=== PATIENT | female | born 2000 | race Caucasian/White ===

== ENCOUNTER 2025-02-16 12:09 | Emergency (ER) | payer OTHER ==
[2025-02-16 12:34] VITALS: BP 108/88; PULSE 95; RESP 20; TEMP 97.9; BMI 29.7
[2025-02-16 13:26] LABS: ABSOLUTE IMMATURE GRANULOCYTES 0.03 x10^3/uL (0.0-0.031); BASOPHILS # 0.08 x10^3/uL (0.01-0.08); EOSINOPHIL % 2.0 % (0.7-5.8); EOSINOPHILS # 0.13 x10^3/uL (0.04-0.36); HCG,QUALITATIVE URINE Positive; MCHC 31.3 g/dl (32.2-35.5); MEAN CELL VOLUME 82.3 fl (79.4-94.8); MEAN PLT VOLUME 10.2 fl (9.4-12.3); MONOCYTE # 0.42 x10^3/uL (0.24-0.86); MONOCYTE % 6.6 % (4.7-12.5); RDW 13.0 % (12.1-16.5)
[2025-02-16 13:32] LABS: EPI CELLS >36 /uL (0-25.1); HYALINE CASTS 1 /uL (0-3.1); URINE APPEARANCE CLEAR; URINE BACTERIA 777 /uL (0-1359); URINE BILIRUBIN NEGATIVE (NEGATIVE); URINE COLOR YELLOW; URINE GLUCOSE (UA) NEGATIVE (NEGATIVE); URINE KETONE TRACE (NEGATIVE); URINE LEUK ESTERASE TRACE (NEGATIVE); URINE NITRITE NEGATIVE (NEGATIVE); URINE PROTEIN TRACE (NEGATIVE); URINE RBC 33 /uL (0-23.9); URINE UROBILINOGEN 1.0 mg/dL (0.2-1.0); URINE WBC 10 /uL (0-25.8)
[2025-02-16 14:00] LABS: GLUCOSE,RANDOM 97.0 mg/dL (74-106); TOT PROT 8.0 g/dl (6.4-8.2)
[2025-02-16 14:01] LABS: CO2 23.0 mmol/L (21-32)
[2025-02-16 14:03] LABS: ALK PHOS 61.0 U/L (40-150)
[2025-02-16 14:05] LABS: SGOT/AST 23.0 U/L (5-34); SGPT/ALT 24.0 U/L (0-55)
[2025-02-16 14:06] LABS: CREATININE 0.47 mg/dL (0.55-1.3)
[2025-02-16 14:21] LABS: HCV DIAGNOSTIC IN-HOUSE W/RFLX NON-REACTIVE (NONREACTIVE); HIV INTERPRETATION NEGATIVE (NEGATIVE)
== END 2025-02-16 17:11 | disposition home or self-care (01) ==
LOC: JER 12:09
DX: O03.9 Complete or unspecified spontaneous abortion without complication (principal)
CPT/HCPCS: 36415; 76817-TC; 80053; 81003; 84702; 84703; 85025; 86803; 86850; 86900; 86901; 87086; 87389; 99284-25